=== PATIENT | male | born 1975 | race Caucasian/White ===

== ENCOUNTER 2016-04-17 12:20 | Emergency (ER) | payer MEDICAID ==
[2016-04-17 12:26] VITALS: RESP 16
--- NOTE | 2016-04-17 13:58 | EDPHY ---
H & P Time Seen by Provider: 04/17/16 13:29 HPI/ROS: CHIEF COMPLAINT: Not sleeping since stopping methadone HISTORY OF PRESENT ILLNESS: 40-year-old male stopped methadone 23 days ago. States that he has not slept in 23 days. He went to [address] today and was referred to the ER for evaluation. Denies suicidal homicidal ideation. Denies hallucination. Denies complaints of physical pain. He is running whether he could be started on an SSRI or gabapentin. PHYSICAL EXAM (Prior to examination, patient consented to physical exam, hands were washed and my usual and customary physical exam procedures followed) 1) GENERAL: Well-developed, well-nourished, alert and oriented. Answering questions appropriately . 2) HEAD: Normocephalic 3) HEENT: sclera anicteric 4) LUNGS: Breathing comfortably. Smoking Status: Current every day smoker Constitutional: Initial Vital Signs Temperature (C) 36.7 C 04/17/16 12:20 Heart Rate 60 04/17/16 12:20 Respiratory Rate 16 04/17/16 12:20 Blood Pressure 120/66 04/17/16 12:20 O2 Sat (%) 96 04/17/16 12:20 O2 Delivery Mode Room Air Allergies/Adverse Reactions: No Known Allergies Allergy (Verified 04/17/16 12:23) Home Medications: Medication Instructions Recorded NK [No Known Home Meds] 04/17/16 MDM/Departure - [facility] ED Course/Re-evaluation: 1:55 p.m.: Patient does not meet criteria for mental health hold, denies suicidal or homicidal ideation. Denies hallucination. Answering questions appropriately. we cannot start the patient back on methadone. I do not feel comfortable starting the patient on an SSRI from the ER. I recommend he go to the mental health crisis Center near the [facility]. He is agreeable with this. - Depart Disposition: Home, Routine, Self-Care Clinical Impression: Insomnia Qualifiers: Insomnia type: unspecified Qualified Code(s): G47.00 - Insomnia, unspecified Condition: Good Instructions: Insomnia (ED) Additional Instructions: Return to the ER if you develop thoughts of hurting herself or anybody else. Referrals: [facility] [Outside] - 04/17/16
[2016-04-17 14:36] VITALS: BP 128/73; PULSE 64; TEMP 97.7; O2SAT 97
== END 2016-04-17 14:35 | disposition home or self-care (01) ==
DX: G47.00 Insomnia, unspecified (principal); F17.200 Nicotine dependence, unspecified, uncomplicated

== ENCOUNTER 2018-08-05 11:01 | Emergency (ER) | payer MEDICAID | END 2018-08-05 22:25 ==